=== PATIENT | female | born 1945 ===

== ENCOUNTER 2018-07-07 07:08 | Day surgery (SDC) | payer MEDICARE, BC, OTHER ==
--- NOTE | 2018-07-02 20:37 | HP ---
PREOPERATIVE HISTORY AND PHYSICAL EXAM: DATE OF SURGERY/ADMISSION: 07/07/18 DATE OF OFFICE VISIT/ENCOUNTER: 06/13/18 ATTENDING SURGEON: Caroline Akins MD * (DICTATED BY ALEX MIRANDA) PROCEDURE: Excision, cyst, right long finger; trigger finger releases, right long and ring fingers. CHIEF COMPLAINT: Cyst, right long finger; trigger fingers, right long and ring fingers. HISTORY OF PRESENT ILLNESS: This is a 73-year-old female. She complains of a cyst that developed in the area of the DIP joint of the right middle finger over the past year. She feels that it is gradually getting larger and now looks as if there are 2 cysts there. It is bothersome for her when she bumps the finger on anything and she noticed that her finger-nail has become deformed. She denies any trauma to this finger. She is also complaining of triggering of the right middle finger and less so the right ring finger. These have been not bothering her for nearly a year. She is interested in pursuing surgical intervention at this time for all of these problems. PAST MEDICAL HISTORY: 1. Hypertension. 2. Jarad's thyroiditis. 3. High cholesterol. 4. Mild aortic insufficiency. 5. Mild mitral and tricuspid valve insufficiency. PAST SURGICAL HISTORY: Left knee arthroscopy. CURRENT MEDICATIONS: 1. Altace 10 mg daily. 2. Aspirin 81 mg daily. 3. Levoxyl 50 mcg daily. 4. Lipitor 20 mg daily. 5. Oxybutynin chloride ER 10 mg daily. ALLERGIES: SULFA DRUGS cause hives. FAMILY HISTORY: Cancer - melanoma and heart disease. SOCIAL HISTORY: The patient is retired. She denies tobacco use and recreational drug use. She drinks on occasion. REVIEW OF SYSTEMS: Negative for general, cephalic, cardiovascular, respiratory , GI, , other musculoskeletal, integumentary, endocrine, neurologic, and hematologic symptoms. Infectious Disease: Negative for history of MRSA, hepatitis C, HIV. PHYSICAL EXAMINATION GENERAL: Well-developed, well-nourished 73-year-old female, in no acute distress. VITAL SIGNS: Height 4 feet 9 inches, weight 163 pounds. Pulse rate 68, blood pressure 104/80. HEENT: Normocephalic, atraumatic. Pupils are equal, round, and reactive to light and accommodation. Extraocular movements are intact. Throat is clear. NECK: Supple. No palpable lymph nodes. PULMONARY: Lungs are clear to auscultation bilaterally. No wheezes, rales, or rhonchi. CARDIOVASCULAR: Regular rate and rhythm. S1, S2. No murmurs, rubs, or gallops. No edema. ABDOMEN: Positive bowel sounds, soft, nontender. NEUROLOGICAL: Alert and oriented x3. Cranial nerves II through XII are intact. Sensation is intact to light touch. MUSCULOSKELETAL: On exam of her right hand, she has some arthritic changes noted. On inspection of her fingers, skin is intact, no abrasions. The right middle finger has a moderate sized cyst near the DIP joint and a second smaller cyst in the same area. The fingernail has a divot along the ulnar aspect just in line with the cyst. There is no erythema. Cysts are not draining. She has limited range of motion of the DIP joint. She also has tenderness to palpation at the A1 pulleys of both the middle and ring fingers and has active triggering. DIAGNOSTIC STUDIES: X-rays of the right middle finger showed severe degenerative changes noted at the DIP joint, decreased joint space and osteophytes visible. IMPRESSION: Right middle finger mucous cyst and trigger fingers of the middle and ring fingers. PLAN: The patient is scheduled to undergo an excision of cyst of right long finger and trigger finger releases of the right long and ring fingers. She will return to the office 10 days postop for followup and suture removal. A prescription for Ultracet was e-scribed to the patient's pharmacy for postoperative pain management. ALEX MIRANDA [id number]/[facility] #: [id number] ROMEO
[~2018-07-07 07:08] MED LIST: Buffered Lidocaine 0.9% SYRIN* 5 ML/SYR SYRINGE INTRADERM ONE
[2018-07-07] MEDS ORDERED: Propofol* 10 MG/ML 20 ML BTL ONE ×2 (07:46→07:47)
[2018-07-07] MEDS ORDERED: Lidocaine 1% INJ* 10 MG/ML 30 ML SDV ONE (08:20)
[2018-07-07] MEDS ORDERED: Acetaminophen TAB* 325 MG PO PRN (09:13)
[2018-07-07] MEDS ORDERED: Ketorolac INJ* 30 MG/ML 1 ML VIAL IV PRN (09:13)
[2018-07-07] MEDS ORDERED: Naloxone* 0.4 MG/ML 1 ML VIAL IV PRN (09:13)
[2018-07-07 09:24] VITALS: BP 103/57
--- NOTE | 2018-07-07 16:07 | OP ---
DATE OF OPERATION: 07/07/18 [facility] DATE OF : 43 SURGEON: Caroline Akins MD. 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 PRE-OP DIAGNOSES: Right long and ring finger trigger finger and right long finger mass. POST-OP DIAGNOSES: Right long and ring finger trigger finger and right long finger mass. OPERATIVE PROCEDURE: Removal of right long finger mass and right long and ring finger trigger release. INDICATIONS FOR PROCEDURE: Bharati is a 73-year-old female with a painful mass on the dorsal aspect of the right middle finger DIP joint and locking and triggering of the middle and ring fingers of the right hand. She presents for trigger releases and mass excision from the right middle finger. Clinically, the mass is a ganglion cyst. ESTIMATED BLOOD LOSS: Zero. TOURNIQUET TIME: About 20 minutes. DESCRIPTION OF PROCEDURE: The patient was brought to the operating room, was given a sedation anesthetic and a local infiltration of 10 cc of 1% plain lidocaine in the palm of the right hand, which also served as a digital block for the middle finger. The skin of her right hand and forearm was prepped and draped in the usual sterile fashion. The upper extremity was exsanguinated and the forearm tourniquet elevated to 250 mmHg. An H-shaped incision was made centered over the DIP joint and the mass and carefully dissected between the skin and the ganglion cyst. The cyst was removed from over top of the nail bed which it was compressing and causing a large deformity and then was traced with its stalk back to the DIP joint capsule. Either side of the extensor tendon was incised longitudinally and the underlying osteophytes were removed with a rongeur. The wound was irrigated and the skin edges reapproximated with 4-0 nylon suture. Next, a transverse incision was made centered over the A1 mckenzie through the middle and ring finger of the right hand. We dissected bluntly through the subcutaneous tissue down to both pulleys. The pulleys were incised longitudinally, completely releasing the tendons which had a moderate amount of abrasion of the FDS tendons both fingers. The wound was irrigated. Skin edges were reapproximated with 4-0 nylon suture. The wound was dressed with Xeroform , 4x4, Webril, and an Gaurav wrap. The patient tolerated the procedure well and was brought to the recovery room in good condition. [id number]/[facility] #: [id number] MTDD
== END 2018-07-07 09:34 | disposition home or self-care (01) ==
LOC: OREAST 07:08
PROVIDERS: ATTEND Orthopaedic Surgery
DX: M67.441 Ganglion, right hand (principal); M65.331 Trigger finger, right middle finger; M65.341 Trigger finger, right ring finger; I10 Essential (primary) hypertension; E06.3 Autoimmune thyroiditis; E78.00 Pure hypercholesterolemia, unspecified; I08.3 Combined rheumatic disorders of mitral, aortic and tricuspid valves; M19.90 Unspecified osteoarthritis, unspecified site
CPT/HCPCS: 88304; J2704